=== PATIENT | female | born 1950 | race American Indian/Alaskan Native ===

== ENCOUNTER 2019-11-12 00:26 | Day surgery (SDC) | payer OTHER ==
[~2019-11-12 00:26] MED LIST: ALBU8HFA2 INH; ALBU90OI6 INH; ALBU90OI61 INH; ALPR.25; AMLO10 PO; AMLO5; ATOR10; ATOR40TA PO; Aspir 8181 MG PO; BUTASPCAFT; CARV25 PO; CARV6.25; CHLO25B PO; CLONIDINE; CLOP75 PO; CYCL10 PO; DILT120 PO; DOCU100 PO; DOXA1 PO; DULO60 PO; ELIQUIS5 MG PO; ENALAPRIL; ESCI10; ESCI10 PO; ESOM20 PO; ESOMEPRAZOLE MA40 MG PO; ESTR1; ESTR2; FLUSAL2505 IH; FLUT44OIA; FLUT44OIA INH; FUROSEMIDE; GABA100 PO; GABA300 PO; HCTZ; HYDACE5; HYDACE5 PO; HYDACE5325 PO; HYDCHL25 PO; Hydrocodone-Ap1 EA23 PO; ISOMON60ER PO; KETO.5OPSO; LIPITOR; LISI20 PO; LORAZEPAM; MELO7.5 PO; METF500 PO; METO100 PO; METO100ER PO; METO50 PO; METO50ER; NEBI10 PO; NITR.4SL SL; NITR.6SL SL; NORVASC; PANT20 PO; PANT40 PO; POLTRIOPSO BOTHEYES; POLTRIOPSO LEFTEYE; POLY17UD PO; PRED1SU BOTHEYES; PRED1SU LEFTEYE; RAMI2.5 PO; RANI150; RANI150 PO; RANO500T PO; RXCYCL10 PO; RXHYDACE PO; RXPROM25 PO; SPIR25 PO; SPIRONOLACTONE; TOPI50 PO; TRAM50 PO; TRAMADOL; TRAZ100 PO; TRAZ50 PO; TRAZODONE; Ventolin Soln3 ML INH; XARELTO20 MG PO; Zestril30 MG PO
== END 2019-11-12 22:42 | disposition home or self-care (01) ==
LOC: WOUND 00:26
DX: T81.31XA Disruption of external operation (surgical) wound, not elsewhere classified, initial encounter (principal); J44.9 Chronic obstructive pulmonary disease, unspecified; E11.40 Type 2 diabetes mellitus with diabetic neuropathy, unspecified; I10 Essential (primary) hypertension; E78.5 Hyperlipidemia, unspecified; Z79.01 Long term (current) use of anticoagulants; Z87.19 Personal history of other diseases of the digestive system; Z79.84 Long term (current) use of oral hypoglycemic drugs; Z79.899 Other long term (current) drug therapy
CPT/HCPCS: G0463

== ENCOUNTER 2019-11-19 00:32 | Day surgery (SDC) | payer OTHER | END 2019-11-19 22:41 | disposition home or self-care (01) | LOC: WOUND 00:32 | DX: T81.31XD Disruption of external operation (surgical) wound, not elsewhere classified, subsequent encounter (principal); E11.40 Type 2 diabetes mellitus with diabetic neuropathy, unspecified; J44.9 Chronic obstructive pulmonary disease, unspecified; E78.5 Hyperlipidemia, unspecified; I10 Essential (primary) hypertension; I69.354 Hemiplegia and hemiparesis following cerebral infarction affecting left non-dominant side; I25.10 Atherosclerotic heart disease of native coronary artery without angina pectoris; Z95.5 Presence of coronary angioplasty implant and graft; Z87.19 Personal history of other diseases of the digestive system; Z79.01 Long term (current) use of anticoagulants; Z79.899 Other long term (current) drug therapy; Z79.84 Long term (current) use of oral hypoglycemic drugs; Z79.82 Long term (current) use of aspirin; Z79.02 Long term (current) use of antithrombotics/antiplatelets | CPT/HCPCS: G0463 ==

== ENCOUNTER 2019-12-04 00:09 | Day surgery (SDC) | payer OTHER | END 2019-12-04 22:40 | disposition home or self-care (01) | LOC: WOUND 00:09 | DX: T81.31XA Disruption of external operation (surgical) wound, not elsewhere classified, initial encounter (principal); J44.9 Chronic obstructive pulmonary disease, unspecified; I69.354 Hemiplegia and hemiparesis following cerebral infarction affecting left non-dominant side; E11.40 Type 2 diabetes mellitus with diabetic neuropathy, unspecified; I10 Essential (primary) hypertension; E78.5 Hyperlipidemia, unspecified; Z79.01 Long term (current) use of anticoagulants; Z87.19 Personal history of other diseases of the digestive system; Z79.899 Other long term (current) drug therapy; Z79.84 Long term (current) use of oral hypoglycemic drugs; Z79.82 Long term (current) use of aspirin; Z79.02 Long term (current) use of antithrombotics/antiplatelets | CPT/HCPCS: 87070; 87075; 87077; 87186; 87205; G0463 ==

== ENCOUNTER 2020-01-23 00:32 | Day surgery (SDC) | payer OTHER ==
[~2020-01-23 00:32] MED LIST changes: -ALBU90OI6 INH; -CHLO25B PO; -DILT120 PO; -DOXA1 PO; -ESOMEPRAZOLE MA40 MG PO; -LISI20 PO; -SPIR25 PO
== END 2020-01-23 23:39 | disposition home or self-care (01) ==
LOC: WOUND 00:32
DX: T81.31XD Disruption of external operation (surgical) wound, not elsewhere classified, subsequent encounter (principal); I10 Essential (primary) hypertension; I25.10 Atherosclerotic heart disease of native coronary artery without angina pectoris; I73.9 Peripheral vascular disease, unspecified; Z87.19 Personal history of other diseases of the digestive system; Z79.899 Other long term (current) drug therapy
CPT/HCPCS: G0463

== ENCOUNTER 2020-01-26 18:19 | Emergency (ER) | payer OTHER ==
[~2020-01-26] VITALS: Ht 165.1 cm; Wt 88.5 kg
[2020-01-26 19:07] LABS: BASOPHILS ABSOLUTE AUTO 0.03 K/mm3 (0.00-0.23); BASOPHILS PERCENT AUTO 0 % (0-2); EOSINOPHILS PERCENT AUTO 2 % (0-6); Hematocrit 50.4 % (33.0-51.0); Hemoglobin 15.8 g/dL (11.5-16.0); IMMATURE GRAN ABSOLUTE AUTO 0.02 K/mm3 (0.00-0.10); IMMATURE GRAN PERCENT AUTO 0 % (0-1); LYMPHOCYTES ABSOLUTE AUTO 1.85 K/mm3 (0.84-5.20); LYMPHOCYTES PERCENT AUTO 18 % (21-46); MONOCYTES ABSOLUTE AUTO 0.61 K/mm3 (0.16-1.47); MONOCYTES PERCENT AUTO 6 % (4-13); Mean Corpuscular HGB 26.8 pg (26.0-34.0); Mean Corpuscular HGB Conc 31.3 g/dL (31.5-36.5); Mean Corpuscular Volume 85 fL (80-100); NEUTROPHILS ABSOLUTE AUTO 7.68 K/mm3 (1.96-9.15); NEUTROPHILS PERCENT AUTO 74 % (41-73); Platelet Count 342 K/mm3 (150-400); RDW Coefficient Variation 13.7 % (11.7-14.2); White Blood Cell Count 10.39 K/mm3 (4.00-11.30)
[2020-01-26 19:31] LABS: Alanine Aminotransfer (ALT/SGP 65 U/L (12-78); Albumin, Blood 4.7 g/dL (3.4-5.0); Albumin/Globulin Ratio 0.9 (0.8-1.8); Alk Phos 93 U/L (50-136); Anion Gap 7 mmol/L (6-16); Aspartate Aminotrans (AST/SGOT 37 U/L (12-37); Bilirubin, Total 0.4 mg/dL (0.1-1.0); Blood Urea Nitrogen 11 mg/dL (8-24); Bun/Creatinine Ratio 15.7 (12.0-20.0); CO2, Blood 26 mmol/L (21-32); Calcium, Blood 9.7 mg/dL (8.5-10.1); Chloride, Blood 105 mmol/L (98-108); Glomerular Filtration Rate >60 (60-); Glucose, Blood 151 mg/dL (70-99); Potassium, Blood 3.2 mmol/L (3.5-5.5); Sodium, Blood 138 mmol/L (136-145); Total Protein, Blood 9.7 g/dL (6.4-8.2)
[2020-01-26] MEDS ORDERED: ESOMEPRAZOLE MA40 MG PO (21:46)
[2020-01-26] MEDS ORDERED: ALBU90OI6 INH (21:47)
[2020-01-26] MEDS ORDERED: CHLO25B PO (21:47)
[2020-01-26] MEDS ORDERED: DILT120 PO (21:48)
[2020-01-26] MEDS ORDERED: DOXA1 PO (21:48)
[2020-01-26] MEDS ORDERED: LISI20 PO (21:49)
[2020-01-26] MEDS ORDERED: TOPI50 PO (21:50)
[2020-01-26] MEDS ORDERED: NITR.4SL SL (21:50)
[2020-01-26] MEDS ORDERED: SPIR25 PO (21:50)
[2020-01-26] MEDS ORDERED: CLOP75 PO (21:52)
[2020-01-26] MEDS ORDERED: Aspir 8181 MG PO (21:53)
== END 2020-01-26 23:51 | disposition short-term general hospital (02) ==
LOC: ER 18:19
PROVIDERS: Emergency Medicine
DX: K56.600 Partial intestinal obstruction, unspecified as to cause (principal); I10 Essential (primary) hypertension; E11.9 Type 2 diabetes mellitus without complications; E78.5 Hyperlipidemia, unspecified; Z98.890 Other specified postprocedural states; Z88.8 Allergy status to other drugs, medicaments and biological substances; Z91.048 Other nonmedicinal substance allergy status; Z88.2 Allergy status to sulfonamides; Z79.899 Other long term (current) drug therapy; Z79.82 Long term (current) use of aspirin; Z79.01 Long term (current) use of anticoagulants; Z79.02 Long term (current) use of antithrombotics/antiplatelets; Z79.84 Long term (current) use of oral hypoglycemic drugs; Z95.5 Presence of coronary angioplasty implant and graft; Z20.828 Contact with and (suspected) exposure to other viral communicable diseases
CPT/HCPCS: 36415; 74177; 80053; 83690; 85025; 96374; 96375; 96376; 99283-25; J1170; J2405; J3010; Q9967; U0002

== ENCOUNTER 2022-06-24 20:28 | Emergency (ER) | payer OTHER ==
[~2022-06-24] VITALS: Ht 167.6 cm; Wt 79.4 kg
[~2022-06-24 20:28] MED LIST changes: +ALBU90OI6 INH; +CHLO25B PO; +DILT120 PO; +DOXA1 PO; +ESOMEPRAZOLE MA40 MG PO; +LISI20 PO; +SPIR25 PO
[2022-06-24 20:59] LABS: BASOPHILS ABSOLUTE AUTO 0.03 K/mm3 (0.00-0.23); BASOPHILS PERCENT AUTO 0 % (0-2); EOSINOPHILS ABSOLUTE AUTO 0.08 K/mm3 (0.00-0.68); EOSINOPHILS PERCENT AUTO 1 % (0-6); Hematocrit 42.7 % (33.0-51.0); Hemoglobin 14.2 g/dL (11.5-16.0); IMMATURE GRAN ABSOLUTE AUTO 0.03 K/mm3 (0.00-0.10); IMMATURE GRAN PERCENT AUTO 0 % (0-1); LYMPHOCYTES ABSOLUTE AUTO 1.44 K/mm3 (0.84-5.20); LYMPHOCYTES PERCENT AUTO 15 % (21-46); MONOCYTES ABSOLUTE AUTO 0.68 K/mm3 (0.16-1.47); MONOCYTES PERCENT AUTO 7 % (4-13); Mean Corpuscular HGB 27.3 pg (26.0-34.0); Mean Corpuscular HGB Conc 33.3 g/dL (31.5-36.5); Mean Corpuscular Volume 82 fL (80-100); Mean Platelet Volume 9.5 fL (9.1-12.4); NEUTROPHILS ABSOLUTE AUTO 7.54 K/mm3 (1.96-9.15); NEUTROPHILS PERCENT AUTO 77 % (41-73); Platelet Count 722 K/mm3 (150-400); RDW Coefficient Variation 13.7 % (11.7-14.2); RDW Standard Deviation 40.3 fL (35.1-46.3); Red Blood Cell Count 5.21 M/mm3 (3.80-5.20)
[2022-06-24 21:10] LABS: Albumin, Blood 2.9 g/dL (3.4-5.0); Albumin/Globulin Ratio 0.5 (0.8-1.8); Bilirubin, Total 0.4 mg/dL (0.1-1.0); Bun/Creatinine Ratio 20.6 (12.0-20.0); Calcium, Blood 10.1 mg/dL (8.5-10.1); Creatinine, Blood 0.68 mg/dL (0.40-1.00); Potassium, Blood 3.3 mmol/L (3.5-5.5); Total Protein, Blood 8.9 g/dL (6.4-8.2)
[2022-06-24 22:30] LABS: Source, Urine Clean Catch
[2022-06-24 22:32] LABS: Bilirubin, Urine Neg (Neg); Blood, Urine 1+ (Neg); Glucose Qualitative, Urine Neg (Neg); Ketones, Urine 4+ (Neg); Leukocyte Esterase, Urine 3+ (Neg); Nitrite, Urine Pos (Neg); Protein, Urine 1+ (Neg); Specific Gravity, Urine 1.015 (1.003-1.022); Urobilinogen, Urine NORM (Normal)
[2022-06-24 22:55] LABS: Appearance, Urine Hazy (Clear); Color, Urine Yellow (P-Yellow)
[2022-06-24 22:58] LABS: Bacteria Mod /hpf; Red Blood Cells, Urine 0-2 /hpf (0-2); Squamous Epithelial Cells Rare /hpf (Few); White Blood Cells, Urine 25-50 /hpf (0-5)
[2022-06-24] MEDS ORDERED: Miralax17 GM PO (23:19)
[2022-06-24] MEDS ORDERED: CEFD300 PO (23:19)
[2022-06-24] MEDS ORDERED: ONDA4ODT SL (23:19)
== END 2022-06-25 | disposition home or self-care (01) ==
LOC: ER 20:28
PROVIDERS: Emergency Medicine
DX: R10.31 Right lower quadrant pain (principal); I10 Essential (primary) hypertension; E11.9 Type 2 diabetes mellitus without complications; Z88.8 Allergy status to other drugs, medicaments and biological substances; Z88.2 Allergy status to sulfonamides; Z88.5 Allergy status to narcotic agent; Z91.018 Allergy to other foods; Z79.899 Other long term (current) drug therapy
CPT/HCPCS: 36415; 74177; 80053; 81001; 83690; 85025; 87077; 87086; 87186; 96374; 96375; 99284-25; A9270; J0696; J1170; J2405; J7030; Q9967